=== PATIENT | male | born 1960 | race Caucasian/White ===

== ENCOUNTER 2020-05-25 06:34 | Day surgery (SDC) | payer OTHER ==
[2020-05-24 10:12] LABS: COVID AG,FIA SOURCE NASOPHARYNGEAL
[~2020-05-25] VITALS: Ht 177.8 cm; Wt 96.4 kg
[~2020-05-25 06:34] MED LIST: SODIUM CHLORIDE 0.9% 1,000 ML IV ONE; SODIUM CHLORIDE 0.9% 1,000 ML ONE
[2020-05-25] MEDS ORDERED: MIDAZOLAM HCL 2 MG/2 ML VIAL ONE (08:01)
[2020-05-25] MEDS ORDERED: FentaNYL CITRATE-PF 100 MCG/2 ML VIAL ONE (08:02)
[2020-05-25] MEDS ORDERED: MethylPREDNISolone SOD SUCC 125 MG/2 ML VIAL ONE (09:10)
[2020-05-25] MEDS ORDERED: METO-558 PO (09:15)
[2020-05-25] MEDS ORDERED: ALBU8HFA IH (09:15)
[2020-05-25] MEDS ORDERED: MethylPREDNISolone SOD SUCC 125 MG/2 ML VIAL IVP ONE (09:15)
[2020-05-25] MEDS ORDERED: ATOR40TA28 PO (09:15)
[2020-05-25] MEDS ORDERED: PRED20 PO (09:15)
[2020-05-25] MEDS ORDERED: BUPR100SR PO (09:21)
[2020-05-25] MEDS ORDERED: GUAN1TAB22 PO (09:21)
[2020-05-25] MEDS ORDERED: NABU-139 PO (09:21)
[2020-05-25] MEDS ORDERED: NALT50TA6 PO (09:21)
[2020-05-25] MEDS ORDERED: THIA100T80 PO (09:21)
[2020-05-25] MEDS ORDERED: GABA-1181 PO (09:21)
[2020-05-25] MEDS ORDERED: FLUO-191 PO (09:21)
[2020-05-25] MEDS ORDERED: ALBUTEROL SULFATE 2.5 MG/0.5 ML NEB SOLUTION NEB ONE (16:18)
[2020-05-25] MEDS ORDERED: BENZOCAINE 20% 50 MCG/SPRAY 57 GM TP ONE (16:19)
[2020-05-25] MEDS ORDERED: LIDOCAINE 4% 50 ML SOLUTION TP ONE (16:20)
[2020-05-25] MEDS ORDERED: LIDOCAINE 2% 30 ML JELLY TP ONE (16:20)
== END 2020-05-25 10:15 | disposition home or self-care (01) ==
LOC: SURGERY 06:34
PROVIDERS: ATTEND Internal Medicine Critical Care Medicine
DX: J38.4 Edema of larynx (principal); B37.0 Candidal stomatitis; Z79.899 Other long term (current) drug therapy
CPT/HCPCS: 31623; 31624; 71045; 87015; 87070; 87101; 87205; 87206; 87220; 87426; 88108; 88312; 93005; C9803; J2250; J2930; J3010; J7030; J7613; Z7610